=== PATIENT | male | born 1995 | race Caucasian/White ===

== ENCOUNTER 2020-09-21 10:45 | Emergency (ER) | payer OTHER ==
[~2020-09-21] VITALS: Ht 182.9 cm; Wt 92.2 kg
[2020-09-21 10:46] VITALS: BP 142/79
[2020-09-21] MEDS ORDERED: IBUP-1114 PO (10:52)
[2020-09-21] MEDS ORDERED: ACET-683 PO (10:52)
[2020-09-21] MEDS ORDERED: PENI500T PO (11:31)
[2020-09-21] MEDS ORDERED: LIDO2SOL17 PO (11:31)
[2020-09-22] MEDS ORDERED: PRED20TA PO (12:22)
== END 2020-09-21 11:44 | disposition home or self-care (01) ==
LOC: M ED 10:45
DX: J02.0 Streptococcal pharyngitis (principal); D75.A Glucose-6-phosphate dehydrogenase (G6PD) deficiency without anemia

== ENCOUNTER 2020-09-22 09:48 | Emergency (ER) | payer OTHER ==
[~2020-09-22] VITALS: Ht 182.9 cm; Wt 90.8 kg
[~2020-09-22 09:48] MED LIST: ACET-683 PO; IBUP-1114 PO; LIDO2SOL17 PO; PENI500T PO
[2020-09-22] MEDS ORDERED: dexameTHASONE 20MG/5ML VIAL (J1100 PER 1MG) IV ONE (10:30)
[2020-09-22] MEDS ORDERED: NS 1,000 ML IV ONE (10:30)
[2020-09-22 10:54] LABS: HEMATOCRIT 42.3 % (42.0-52.0); HEMOGLOBIN 13.6 g/dl (13.5-17.5); MEAN CORPUSCULAR HEMOGLOBIN 28.6 pg (27.0-33.0); MEAN CORPUSCULAR HGB CONC 32.2 g/dl (32.0-36.5); MEAN CORPUSCULAR VOLUME 89.1 fl (80.0-96.0); PLATELET COUNT, AUTOMATED 241 10^3/uL (150-450); RED BLOOD COUNT 4.75 10^6/uL (4.30-6.10); WHITE BLOOD COUNT 25.7 10^3/uL (4.0-10.0)
[2020-09-22] MEDS ORDERED: ISOVUE-370 76% 100ML VIAL As Ordered ONE (11:19)
[2020-09-22 11:21] LABS: ANISOCYTOSIS 1+; ATYPICAL LYMPH 18 % (0-5); BLAST CELLS 1 % (0-0); LYMPHOCYTES 32 % (16-44); MONOCYTES 7 % (0-5); MYELOCYTES 1 % (0-0); NEUTROPHILS 34 % (28-66); PLATELET ESTIMATE NORMAL (NORMAL)
--- NOTE | 2020-09-22 11:51 | REP ---
INDICATION: tonisillitis-severe r/o abscess. COMPARISON: None. TECHNIQUE: Axial CT images with multiplanar reformations. FINDINGS: The tonsils are enlarged bilaterally. The airway at the level of the tonsils narrows. There is a small amount of low-density, greater on the left and posteriorly, consistent with phlegmon, but no definite low density to suggest a developed or drainable abscess collection. Adenopathy seen bilaterally. Oropharynx, nasopharynx, hypopharynx and larynx appear otherwise unremarkable. Minimal degenerative changes of the cervical spine noted. IMPRESSION: Enlarged tonsils bilaterally without findings of mature abscess formation. Bilateral lymphadenopathy. <Electronically signed by Lex Wade > 09/22/20 [id number]
[2020-09-22 12:18] LABS: MONO REFLEX EBV COMP POSITIVE (NEGATIVE)
[2020-09-22] MEDS ORDERED: PRED20TA PO (12:22)
[2020-09-22 12:30] VITALS: BP 141/77
== END 2020-09-22 12:32 | disposition home or self-care (01) ==
LOC: M ED 09:48
DX: J03.90 Acute tonsillitis, unspecified (principal); B27.90 Infectious mononucleosis, unspecified without complication; D75.A Glucose-6-phosphate dehydrogenase (G6PD) deficiency without anemia
CPT/HCPCS: 36415; 70491; 80047; 85025; 86308; 96361; 96374; 99284; J1100; Q9967